=== PATIENT | female | born 1970 | race African-American/Black ===

== ENCOUNTER → 2017-03-24 | Emergency (ER) | payer MEDICAID ==
[~2017-03-24] VITALS: Ht 167.6 cm; Wt 61.2 kg
[~2017-03-24] MED LIST: COUMADIN7.5 MG ORAL; DIGOXIN125 MCG ORAL; Digoxin 0.125mg tab ORAL ONE; DiphenhydrAMINE 50mg/ml Inj IM ONE; FAMOTIDINE20 MG ORAL; Haloperidol 5mg/ml Inj IM ONE; KEPPRA500 M4 ORAL; LORazepam Inj 2mg/ml 1ml IM ONE; METOPROLOL SUCC25 MG ORAL; Metoprolol 25mg tab ORAL ONE; NORCO 10-325 T1 EACH ORAL; Norco 10mg/325mg tab ORAL ONE
[2017-03-24 21:05] VITALS: BP 110/72
[2017-03-24 21:52] LABS: BASOPHILS % (AUTO) 0.9 % (0.0-2.0); LYMPHOCYTES % (AUTO) 15.2 % (20.0-45.0); MEAN CORPUSCULAR HEMOGLOBIN 28.6 PG (27.0-31.0); MEAN CORPUSCULAR VOLUME 92 FL (80-99); MEAN PLATELET VOLUME 6.9 FL (6.5-10.1); NEUTROPHILS % (AUTO) 78.9 % (45.0-75.0); PLATELET COUNT 197 K/UL (150-450); RED BLOOD COUNT 4.09 M/UL (4.20-5.40); RED CELL DISTRIBUTION WIDTH 15.1 % (11.6-14.8); WHITE BLOOD COUNT 10.7 K/UL (4.8-10.8)
[2017-03-24 22:04] LABS: ANION GAP 12 mmol/L (5-15); CALCIUM 9.5 MG/DL (8.5-10.1); CARBON DIOXIDE 22 MMOL/L (21-32); CHLORIDE 108 MMOL/L (98-107); CREATININE 1.2 MG/DL (0.55-1.30); GLOMERULAR FILTRATION RATE 48.8 mL/min (>60); POTASSIUM 3.7 MMOL/L (3.5-5.1); SODIUM 142 MMOL/L (136-145)
[2017-03-24 22:08] LABS: ALANINE AMINOTRANSFERASE 22 U/L (12-78); ALCOHOL 166 mg/dL; ASPARTATE AMINO TRANSFERASE 39 U/L (15-37); TOTAL PROTEIN 7.5 G/DL (6.4-8.2)
[2017-03-24 22:11] LABS: ACETAMINOPHEN < 2 MCG/ML (10-30)
--- NOTE | 2017-03-24 22:12 | Emergency Room Report ---
History of Present Illness General Chief Complaint: Behavioral Complaint Source: Patient, EMS Present Illness HPI Patient is brought in by paramedics and police department On a 5150 Patient acting bizarre at home Apparently was breaking glasses at a neighbors house Police report that her house also appeared disheveled Patient here is yelling and screaming at the staff Verbally abusive Patient does not answer any other questions and essentially continues to curse at me and the staff history of present illness is significantly limited Per the paramedics and the police department patient has history of psychiatric disorder including bipolar disorder Allergies: Coded Allergies: PENICILLINS (Verified Allergy, Unknown, 03/24/17) Patient History Limited by: medical condition Past Medical History: see triage record Pertinent Family History: unable to obtain Last Menstrual Period: unknown Now: No - unknown : 1 Para: 1 Reviewed Nursing Documentation: PMH: Agreed, PSxH: Agreed Nursing Documentation-PMH Hx Cardiac Problems: Yes - mitral valve replacement 12/19 History Of Psychiatric Problem: Yes - Bipolar Hx Seizures: Yes Review of Systems All Other Systems: limited - Other than the ones mentioned in the history of present illness all others are reviewed however they do stay limited due to the patient's mental status Physical Exam Vital Signs Date Time Temp Pulse Resp B/P (MAP) Pulse Ox O2 Delivery O2 Flow Rate FiO2 03/24/17 20:58 98.1 89 20 110/72 99 Room Air Sp02 EP Interpretation: reviewed, normal General Appearance: moderate distress - thrashing around, verbally abusive Head: normocephalic, atraumatic Eyes: bilateral eye PERRL, bilateral eye EOMI ENT: normal pharynx, no angioedema Neck: full range of motion, supple Respiratory: chest non-tender, lungs clear Cardiovascular #1: regular rate, rhythm, no edema Gastrointestinal: soft, no mass Musculoskeletal: normal inspection Neurologic: alert, oriented x3, responsive Psychiatric: other - Yelling and screaming, verbally abusive, Skin: no rash Lymphatic: no adenopathy Medical Decision Making Diagnostic Impression: Primary Impression: Behavioral disorder Additional Impression: Acute psychosis ER Course Given the patient's history and presentation Blood work was initiated for further evaluation At this time the patient is medically cleared Given her bizarre behavior in the 5150 she will require further psychiatric evaluation Labs Test 03/24/17 21:26 White Blood Count 10.7 K/UL (4.8-10.8) Red Blood Count 4.09 M/UL (4.20-5.40) Hemoglobin 11.7 G/DL (12.0-16.0) Hematocrit 37.8 % (37.0-47.0) Mean Corpuscular Volume 92 FL (80-99) Mean Corpuscular Hemoglobin 28.6 PG (27.0-31.0) Mean Corpuscular Hemoglobin Concent 31.0 G/DL (32.0-36.0) Red Cell Distribution Width 15.1 % (11.6-14.8) Platelet Count 197 K/UL (150-450) Mean Platelet Volume 6.9 FL (6.5-10.1) Neutrophils (%) (Auto) 78.9 % (45.0-75.0) Lymphocytes (%) (Auto) 15.2 % (20.0-45.0) Monocytes (%) (Auto) 4.0 % (1.0-10.0) Eosinophils (%) (Auto) 1.0 % (0.0-3.0) Basophils (%) (Auto) 0.9 % (0.0-2.0) Urine HCG, Qualitative Negative Sodium Level 142 MMOL/L (136-145) Potassium Level 3.7 MMOL/L (3.5-5.1) Chloride Level 108 MMOL/L (98-107) Carbon Dioxide Level 22 MMOL/L (21-32) Anion Gap 12 mmol/L (5-15) Blood Urea Nitrogen 10 mg/dL (7-18) Creatinine 1.2 MG/DL (0.55-1.30) Estimat Glomerular Filtration Rate 48.8 mL/min (>60) Glucose Level 89 MG/DL (74-106) Calcium Level 9.5 MG/DL (8.5-10.1) Total Bilirubin 0.7 MG/DL (0.2-1.0) Aspartate Amino Transf (AST/SGOT) 39 U/L (15-37) Alanine Aminotransferase (ALT/SGPT) 22 U/L (12-78) Alkaline Phosphatase 54 U/L (46-116) Total Protein 7.5 G/DL (6.4-8.2) Albumin 3.7 G/DL (3.4-5.0) Globulin 3.8 g/dL Albumin/Globulin Ratio 1.0 (1.0-2.7) Salicylates Level 3.6 ug/mL (2.8-20) Urine Opiates Screen Negative (NEGATIVE) Acetaminophen Level < 2 MCG/ML (10-30) Urine Barbiturates Screen Negative (NEGATIVE) Valproic Acid (Depakene) Level < 3 MCG/ML (50-100) Phencyclidine (PCP) Screen Negative (NEGATIVE) Urine Amphetamines Screen Negative (NEGATIVE) Urine Benzodiazepines Screen Negative (NEGATIVE) Urine Cocaine Screen Negative (NEGATIVE) Urine Marijuana (THC) Screen Positive (NEGATIVE) Serum Alcohol 166 mg/dL Last Vital Signs Date Time Temp Pulse Resp B/P (MAP) Pulse Ox O2 Delivery O2 Flow Rate FiO2 03/24/17 20:58 98.1 89 20 110/72 99 Room Air Status: improved Disposition: XFER TO PSYCH HOSP/UNIT Condition: Improved Referrals: NOT CHOSEN CAIO/,REFERRING (PCP) JUAN MANUEL HAMMOND D.O. Mar 24, 2017 22:12
[2017-03-24 23:40] VITALS: BP 113/70
[2017-03-25 01:34] VITALS: BP 101/60
[2017-03-25 03:32] VITALS: BP 108/62
[2017-03-25 05:25] VITALS: BP 93/59
[2017-03-25 09:33] LABS: INR 4.6 (0.9-1.1); PROTHROMBIN TIME 49.5 SEC (9.30-11.50)
[2017-03-25 10:28] VITALS: BP 96/60
== END ==
LOC: EDBD 21:05 → EMR 21:30
DX: F91.9 Conduct disorder, unspecified (principal); F23 Brief psychotic disorder; F31.9 Bipolar disorder, unspecified; Z95.2 Presence of prosthetic heart valve; Z88.0 Allergy status to penicillin
CPT/HCPCS: 36415; 80053; 80164; 80307; 80329; 81025; 85025; 96372; 99285; J1200; J1630; 80299; 85610; 85730